=== PATIENT | male | born 1965 | race Caucasian/White ===

== ENCOUNTER → 2018-02-23 | Outpatient (CLI) | payer OTHER ==
--- NOTE | 2018-02-23 16:45 | Diagnostic Imaging Report ---
PROCEDURE: CT CHEST WITHOUT CONTRAST CT scan of the chest WITHOUT intravenous contrast, using standard protocol. TECHNIQUE: The chest was scanned utilizing a multidetector helical scanner from the apex to the level of the adrenal glands. No IV contrast was administered per physician's request. Coronal and sagittal multiplanar reformations were obtained. COMPARISON: [facility], CT, CT CHEST W, 07/07/2017, 12:43. INDICATIONS: FIBROSIS FINDINGS: Lines/tubes: None. Lungs and Airways: Stable 6 mm nodular density in the lingula (series 3, image 55). Stable 7 mm centrally calcified dede-fissural nodule at the left major fissure (series 3, image 65). Stable subpleural reticulation in the left upper lobe/lingula adjacent to the left major fissure (series 3, image 48), likely reflecting scarring. Stable calcified granuloma in the right lower lobe (series 3, image 87). Stable linear opacities in the medial anterior left lower lobe (series 3, image 82 and coronal image 68), consistent with scarring. Airways are clear, without endobronchial lesions. Pleura: No effusion, or pneumothorax. Heart and mediastinum: Thyroid is unremarkable. Heart size is normal. No pericardial effusion. The aorta is non-aneurysmal. Main pulmonary artery is normal in caliber. Lymph nodes: No significant interval change in bulky, partly calcified mediastinal and bilateral hilar adenopathy. No axillary adenopathy. Abdomen: Limited views of the upper abdomen show no abnormality within the visualized liver, spleen, pancreas, or kidneys. The adrenal glands are normal. Bones: No aggressive lytic lesions. Mild degenerative disc changes in the thoracic spine. Soft tissues are grossly unremarkable. IMPRESSION: 1. stable 6 mm nodule in the lingula. No other nodules are identified. 2. Stable left upper lobe/lingula. Left lower lobe areas of scarring. No significant generalized fibrotic changes. 3. Stable bulky partly calcified mediastinal and bilateral hilar adenopathy, suggesting prior granulomatous disease such as TB, histoplasmosis, or sarcoidosis. Antelmo Brandon M.D. Dictated by: Antelmo Brandon M.D. on 02/23/2018 at 16:50 Electronically approved by: Antelmo Brandon M.D. on 02/23/2018 at 16:50
== END ==
LOC: CT 12:52
PROVIDERS: ATTEND Internal Medicine Critical Care Medicine
DX: Z01.818 Encounter for other preprocedural examination (principal); J84.10 Pulmonary fibrosis, unspecified; K21.9 Gastro-esophageal reflux disease without esophagitis; R59.0 Localized enlarged lymph nodes; D86.9 Sarcoidosis, unspecified
CPT/HCPCS: 71250; 93005

== ENCOUNTER → 2020-08-13 | Outpatient (CLI) | payer OTHER ==
[~2020-08-13] MED LIST: COVID-19 VACC, MRNA(MODERNA)/PF 100 MCG/0.5 ML VIAL IM ONE
== END ==
LOC: VACCPMC 08:00
DX: Z23 Encounter for immunization (principal); Z20.822 Contact with and (suspected) exposure to COVID-19

== ENCOUNTER → 2020-09-10 | Outpatient (CLI) | payer OTHER | LOC: VACCPMC 07:50 | DX: Z23 Encounter for immunization (principal); Z20.822 Contact with and (suspected) exposure to COVID-19 | CPT/HCPCS: 0012A; 91301 ==